=== PATIENT | male | born 1975 | race African-American/Black ===

== ENCOUNTER 2017-07-26 08:32 | Emergency (ER) | payer BC, OTHER ==
[2017-07-26] MEDS ORDERED: Lidocaine 1% 20 ML MDV ONE ×2 (08:58→09:01)
[2017-07-26] MEDS ORDERED: Bacitracin Zinc 1 Packet ONE (09:11)
== END 2017-07-26 09:20 | disposition home or self-care (01) ==
LOC: BURERS 08:32
DX: L72.3 Sebaceous cyst (principal); I10 Essential (primary) hypertension
CPT/HCPCS: 10060; J2001

== ENCOUNTER 2018-12-28 21:10 | Emergency (ER) | payer BC, OTHER ==
[2018-12-28] MEDS ORDERED: Amoxicillin/Potassium Clav 875 MG TAB ONE (21:31)
[2018-12-28] MEDS ORDERED: Oxymetazoline HCl 0.05% ( 15 ML ) ONE (21:31)
[2018-12-28] MEDS ORDERED: Acetaminophen 500 MG TAB ONE (21:31)
== END 2018-12-28 21:52 | disposition home or self-care (01) ==
LOC: BURERS 21:10
DX: J01.90 Acute sinusitis, unspecified (principal); I10 Essential (primary) hypertension
CPT/HCPCS: 99283